=== PATIENT | female | born 1965 | race Caucasian/White ===

== ENCOUNTER → 2023-12-07 12:05 | Outpatient (REF) | payer SELFPAY | LOC: RAD 12:05 | PROVIDERS: ATTENDING PHYSICIAN Internal Medicine Cardiovascular Disease; FAMILY PHYSICIAN Physician Assistant Medical | DX: E78.5 Hyperlipidemia, unspecified (principal); Z82.49 Family history of ischemic heart disease and other diseases of the circulatory system; R06.09 Other forms of dyspnea | CPT/HCPCS: 75571 ==

== ENCOUNTER → 2024-01-05 10:05 | Outpatient (REF) | payer OTHER, SELFPAY | LOC: RCS 10:05 | PROVIDERS: ATTENDING PHYSICIAN Internal Medicine Cardiovascular Disease; FAMILY PHYSICIAN Physician Assistant Medical | DX: E78.5 Hyperlipidemia, unspecified (principal); Z82.49 Family history of ischemic heart disease and other diseases of the circulatory system; R06.09 Other forms of dyspnea | CPT/HCPCS: 93306 ==

== ENCOUNTER → 2024-01-06 12:44 | Outpatient (REF) | payer OTHER, SELFPAY | LOC: RCS 12:44 | PROVIDERS: ATTENDING PHYSICIAN Internal Medicine Cardiovascular Disease; FAMILY PHYSICIAN Physician Assistant Medical | DX: E78.5 Hyperlipidemia, unspecified (principal); Z82.49 Family history of ischemic heart disease and other diseases of the circulatory system; R06.09 Other forms of dyspnea | CPT/HCPCS: 93017; 93350 ==

== ENCOUNTER 2024-04-04 10:40 | Emergency (ER) | payer OTHER, SELFPAY ==
[2024-04-04 10:57] VITALS: BP 147/73
--- NOTE | 2024-04-04 12:05 | ED.GENMED ---
History of Present Illness
General
Chief Complaint: Musculo-Skeletal Complaint
Source: patient
Exam Limitations: none
Time Seen by Provider: 04/04/24 11:48
Nursing documentation reviewed up to this point in time: agreed with
History of Present Illness
History of Present Illness:
Patient is a 58-year-old female who presents to the ER complaint of left hip pain. She reports she started with hip pain about 1 week ago. She denies any injury. She she feels that it is an internal pain but does radiate up her buttock into her
back and down her left leg. She has been alternating Tylenol and ibuprofen without relief. She denies any fever or chills.
Review of Systems
Review of Systems
Allergies reviewed?: Yes
All Other Systems: ROS reviewed and negative except as documented in HPI and ROS
Constitutional: Reports no symptoms; Denies fever, fatigue or chills
Musculoskeletal: Reports other (left hip pain )
Skin: Reports no symptoms
Neurological: Reports no symptoms
Psychiatric: Reports no symptoms
Phy Exam
General Physical Exam
General Presentation: no apparent distress
General age: appears stated age
General Skin: warm and dry
General Habitus: normal
General Mental: alert
General Hydration: appears well hydrated
Neurological Exam
Neurological Exam: alert and oriented x3
Musculoskeletal Exam
Musculoskeletal Exam: other (Left lower extremity strong pulses pain with range of motion to hip no erythema no swelling )
Skin Exam
Skin Exam: normal color and warm/dry
Psychiatric Exam
Psychiatric Exam: normal mood/affect
Course
Orders/Labs/Results
Orders:
Orders
04/04/24 11:56
Hip, Left 2-3 Views [CR Hip - LT w/wo Pel 2-3 Vw*] Urgent
Comment:
Reason For Exam: pain
Include a pelvis x-ray?: Yes
04/04/24 13:37
Dexamethasone Sod Phosphate [Decadron] 10 mg IM NOW STA
Vital Signs
Initial and Last Documented VS:
Initial Vital Signs
Temp Pulse Resp BP Pulse Ox
99.1 F 125 18 147/73 97
04/04/24 10:57 04/04/24 10:57 04/04/24 10:57 04/04/24 10:57 04/04/24 10:57
Last Documented Vital Signs
Temp Pulse Resp BP Pulse Ox
99.1 F 100 16 144/82 98
04/04/24 10:57 04/04/24 12:50 04/04/24 12:50 04/04/24 12:50 04/04/24 12:50
MDM/Problems Addressed
Differential Diagnosis Includes:
Not limited to arthritis, radicular pain less likely bursitis
MDM/Problems Addressed:
Symptoms are consistent with radicular type pain , possible arthritis. Patient in no acute distress she does complain of pain in that hip area that radiates up her back and into her thigh. No injury no bowel or bladder incontinence no
neurological deficits no evidence infection. no swelling.
X-rays reviewed moderate to severe right and moderate left hip OA. will DC with steroids and close outpatient Ortho follow-up.
*Radiology
Radiology exam reviewed: radiology read reviewed
*Pulse Oximetry
Patient hypoxic: no
*Critical Care Note
Total Time (30-74mins, 75-104mins- exclusive of procedures): Not Applicable
ED Attending Note
-
Portions of this chart may have been created with voice recognition software.� Occasional wrong word or��sound alike� substitutions may have occurred due to the inherent limitations of voice recognition software.
Discharge Plan
Departure
Patient Disposition: Home (Routine Discharge)
Date of Disposition: 04/04/24
Time of Disposition: 13:48
Patient with high blood pressure during this ER visit?: No
Condition: Fair
Covid-19: Not Applicable
Discharge Problem:
Acute hip pain
Instructions: Hip Pain ED
Prescriptions:
New
prednisone 10 mg Tablet
See Rx Instructions .ROUTE .COMPLEX Qty: 30 0RF
Rx Instructions:
Take By Mouth:
40 mg daily x3 days, 30 mg daily x3 days,
20 mg daily x3 days, 10 mg daily x3 days.
Referrals:
Rose Graham MD [Family Provider] -
Ute Gold I., [Active] -
Activity Restrictions/Additional Instructions:
As discussed you were given a dose of steroids here in the ER. start steroid taper starting tomorrow morning. Steroid prescription was sent to your pharmacy
take with food. Follow-up with orthopedics. Please call today to make an appointment soon as possible return if any worsening of symptoms.
Interventions
Interventions:
*Risk Screen - Suicide Last Done: 04/04/24 10:53
*General Assessment Last Done: 04/04/24 10:53
*Neglect/Abuse Screening Last Done: 04/04/24 10:53
*ED COVID-19 Vaccine History Last Done: 04/04/24 11:49
ED-Musculoskeletal Assessment Last Done: 04/04/24 11:49
Discharge Date and Time
Print Language: BRITISH
[2024-04-04 12:50] VITALS: BP 144/82
[2024-04-04] MEDS: DECADRON 10 MG IM (13:50)
[2024-04-04 13:59] VITALS: BP 141/78
== END 2024-04-04 14:11 | disposition home or self-care (01) ==
LOC: EMR 10:40
PROVIDERS: EMERGENCY PHYSICIAN Emergency Medicine; FAMILY PHYSICIAN Family Medicine
DX: M25.552 Pain in left hip (principal)
CPT/HCPCS: 99283; 96372; 73502

== ENCOUNTER 2024-06-15 09:29 | Emergency (ER) | payer OTHER, SELFPAY ==
[2024-06-15 09:32] VITALS: BP 170/98
[2024-06-15 10:03] LABS: Urine Albumin Trace (Neg - Trace); Urine Bilirubin Negative (Negative); Urine Character Clear (Clear); Urine Color Yellow; Urine Glucose Negative (Negative); Urine Ketone Negative (Negative); Urine Leukocyte Trace (Negative); Urine Nitrite Negative (Negative); Urine Occult Blood 3+ (Negative); Urine Urobilinogen Negative (Neg - 1+)
[2024-06-15 10:27] VITALS: BP 142/79
[2024-06-15 11:00] VITALS: BP 144/66
[2024-06-15 11:01] LABS: Urine Squamous Cell >30 /LPF (Few)
[2024-06-15 11:05] LABS: Urine Amorphous Seen
[2024-06-15 11:06] LABS: Urine Red Blood Cell 21-25 /HPF (0-2)
[2024-06-15 11:45] LABS: % Basophils 0.5 % (0-2); % Eosinophils 0.8 % (0-6); % Immature Granulocytes 0.5 % (0-0.5); % Lymphocytes 23.5 % (20.5-51.1); % Monocytes 9.2 % (1.7-9.3); % Neutrophils 65.5 % (42.2-75.2); Absolute Eosinophils 0.1 10^3/uL (0-0.7); Absolute Monocytes 0.8 10^3/uL (0.1-0.6); Absolute Neutrophils 5.6 10^3/uL (1.4-6.5); Hematocrit 35.1 % (37.0-47.0); Hemoglobin 11.3 g/dL (12.0-16.0); Mean Corp Hgb Conc. 32.2 g/dL (33.0-37.0); Mean Corpuscular Hgb 28.8 pg (27.0-31.0); Mean Corpuscular Volume 89.3 fL (81.0-99.0); Nucleated Red Blood Cells % 0 %; Platelet Count 248 10^3/uL (130-400); Red Blood Cell Count 3.93 10^6/uL (4.20-5.40); Red Cell Dist. Width 14.1 % (11.5-14.5); White Blood Cell Count 8.6 10^3/uL (4.8-10.8)
--- NOTE | 2024-06-15 11:57 | ED.GENMED ---
Addendum entered and electronically signed by Tyler Esteves PA-C 06/18/24 07:54:
Treated w/ cefdinir, UCx shows appropriate sensitivity
Original Note:
History of Present Illness
General
Chief Complaint: Fever
Source: patient and family
Exam Limitations: none
Time Seen by Provider: 06/15/24 10:28
Nursing documentation reviewed up to this point in time: agreed with
History of Present Illness
History of Present Illness:
58-year-old female 3 days ago had a right hip replacement by Dr. Hieu Krause at the [facility] went home the same day that night she took Xarelto as instructed developed hematuria spoke with the nurses and the team it was held
following nights she develops a fever, no dysuria or frequency no back pain she has a history of kidney stones, has had UTI x 2 this year, no nausea or vomiting has numbness at her surgical wound but no drainage has not been on antibiotics recently
no cough no shortness of breath
Past History
Past History
ED Past Medical History: Cancer (Lymphoma years ago) and Other (Kidney stone)
ED Past Surgical History: Orthopedic
Social History
Tobacco: Non-smoker
Alcohol: None
Drug: None
Personal:
Living: with family
Employment: Employed
Review of Systems
Review of Systems
All Other Systems: Not applicable
Constitutional: Reports fever and chills
EENT: Reports no symptoms
Respiratory: Reports no symptoms
Cardiac: Reports no symptoms
ABD/GI: Denies nausea
: Reports bleeding; Denies dysuria or incontinence
Musculoskeletal: Reports joint pain (Mild post operative pain)
Skin: Reports no symptoms
Neurological: Reports no symptoms
Endocrine: Reports no symptoms
Phy Exam
Physical Exam
Physical Exam:
Physical Exam
General: no apparent distress, not acutely ill
Neck no jaundice
Heart: Regular
Lungs: no acute respiratory distress. clear bilaterally
Abdomen: Soft nontender no CVA tender
Neuro: alert and oriented. no focal neurological deficits
Skin: no rash
Psychiatric: well kept. interactive and cooperative
Extremities: Surgical scar in the right anterior hip clean dry and intact no obvious signs of infection no fluctuance no pus minimal erythema
Course
Orders/Labs/Results
Orders:
Orders
06/15/24 09:42
Urinalysis Reflex To Culture Urgent
Date Specimen was Collected: 06/15/24
Time Specimen was Collected: 09:38
Urine Microscopic Reflex Cult Urgent
Urine Culture Urgent
ALBERTO Source: U
Specimen Description:
Date Specimen was Collected: 06/15/24
Time Specimen was Collected: 09:38
06/15/24 11:15
Add On- LAB Urgent
Tests Added?: urine culture
CT Abd/pel Without Iv Or Oral Urgent
Comment:
Reason For Exam: hematuria fever
06/15/24 11:27
Complete Blood Count/With Diff Urgent
Comprehensive Metabolic Panel Urgent
Blood Culture Q30M
ALBERTO Source: Blood/Venous
Specimen Description:
Blood Culture Q30M
ALBERTO Source: Blood/Venous
Specimen Description:
06/15/24 12:42
CefTRIAXone [Rocephin] 1,000 mg IV NOW STA
Abnormal Lab Results
06/15/24 06/15/24
09:42 11:27
RBC 3.93 L 10^6/uL
(4.20-5.40)
Hgb 11.3 L g/dL
(12.0-16.0)
Hct 35.1 L %
(37.0-47.0)
MCHC 32.2 L g/dL
(33.0-37.0)
Absolute Monos (auto) 0.8 H 10^3/uL
(0.1-0.6)
Carbon Dioxide 34 H mmol/L
(22-30)
AST 68 H U/L
(14-36)
ALT 54 H U/L
(0-35)
Total Protein 6.0 L g/dl
(6.3-8.2)
Ur Occult Blood Reflex 3+ A
(Negative)
Leukocyte Esterase Rfl Trace A
(Negative)
Urine RBC 21-25 A /HPF
(0-2)
06/15/24 11:27
06/15/24 11:27
Vital Signs
Initial and Last Documented VS:
Initial Vital Signs
Temp Pulse Resp BP Pulse Ox
98.1 F 105 16 170/98 99
06/15/24 09:32 06/15/24 09:32 06/15/24 09:32 06/15/24 09:32 06/15/24 09:32
Last Documented Vital Signs
Temp Pulse Resp BP Pulse Ox
98.1 F 105 16 170/98 99
06/15/24 09:32 06/15/24 09:32 06/15/24 09:32 06/15/24 09:32 06/15/24 09:32
MDM/Problems Addressed
Differential Diagnosis Includes:
UTI hematuria viral syndrome doubt surgical joint infection
MDM/Problems Addressed:
Fever hematuria
Chronic conditions affecting care:
Recent orthopedic surgery
Acute Exacerbation and/or Progression of Chronic Illness:
Recent orthopedic surgery
*Radiology
Radiology exam reviewed: radiology read reviewed
*Critical Care Note
Total Time (30-74mins, 75-104mins- exclusive of procedures): Not Applicable
Update Note
Update Note:
Update labs are noted urine culture is pending blood cultures are pending will order antibiotics think in this situation better err on the side of caution treat for UTI make sure she has become bacteremic again I do not think her joint is infected
Message was sent to her treating orthopedist
ED Attending Note
-
Portions of this chart may have been created with voice recognition software.� Occasional wrong word or��sound alike� substitutions may have occurred due to the inherent limitations of voice recognition software.
Discharge Plan
Departure
Patient Disposition: Home (Routine Discharge)
Date of Disposition: 06/15/24
Time of Disposition: 13:08
Patient with high blood pressure during this ER visit?: No
Condition: Good
Discharge Problem:
UTI (urinary tract infection)
Instructions: Urinary Tract Infection, Adult (DC), Blood in the Urine (Hematuria), Adult (DC)
Prescriptions:
New
cefdinir 300 mg capsule
300 mg PO BID Qty: 14 0RF
No Action
prednisone 10 mg Tablet
See Rx Instructions .ROUTE .COMPLEX Qty: 30 0RF
Rx Instructions:
Take By Mouth:
40 mg daily x3 days, 30 mg daily x3 days,
20 mg daily x3 days, 10 mg daily x3 days.
Referrals:
Rose Graham MD [Family Provider] -
Activity Restrictions/Additional Instructions:
Tylenol as needed for fever antibiotics as prescribed follow-up with your family doctor and orthopedist return to the ER if worsening symptoms
Interventions
Interventions:
*Risk Screen - Suicide Last Done: 06/15/24 09:32
*Neglect/Abuse Screening Last Done: 06/15/24 09:32
ED- Fall Risk Assessment Last Done: 06/15/24 11:09
ED- Neurological Assessment Last Done: 06/15/24 11:09
Discharge Date and Time
Print Language: GABONESE
[2024-06-15 12:00] LABS: ALT (SGPT) 54 U/L (0-35); AST (SGOT) 68 U/L (14-36); Albumin 3.9 g/dl (3.5-5.0); Alkaline Phosphatase 60 U/L (38-126); Blood Urea Nitrogen 16 mg/dl (7-17); Calcium 9.2 mg/dl (8.4-10.2); Carbon Dioxide 34 mmol/L (22-30); Chloride 99 mmol/L (98-107); Glucose 95 mg/dl (70-99); Potassium 3.6 mmol/L (3.5-5.1); Sodium 140 mmol/L (135-145); Total Bilirubin 0.5 mg/dl (0.2-1.3); eGFR > 60.00
[2024-06-15 12:06] VITALS: BP 138/73
[2024-06-15] MEDS: ROCEPHIN 1000 MG IV (13:08)
== END 2024-06-15 14:16 | disposition home or self-care (01) ==
LOC: EMR 09:29
PROVIDERS: Emergency Medicine; EMERGENCY PHYSICIAN Emergency Medicine; FAMILY PHYSICIAN Family Medicine
DX: N39.0 Urinary tract infection, site not specified (principal); Z96.641 Presence of right artificial hip joint; Z79.01 Long term (current) use of anticoagulants; Z85.72 Personal history of non-Hodgkin lymphomas
CPT/HCPCS: 99284; 96374; 74176; 80053; 81003; 81015; 85025; 87040; 87077; 87086; 87186